=== PATIENT | female | born 1945 ===

== ENCOUNTER 2019-03-06 14:28 | Emergency (ER) | payer OTHER ==
[~2019-03-06] VITALS: Ht 157.5 cm; Wt 81.6 kg
== END 2019-03-06 19:53 | disposition home or self-care (01) ==
LOC: ER 14:28
DX: S00.83XA Contusion of other part of head, initial encounter (principal); W18.39XA Other fall on same level, initial encounter; Y93.89 Activity, other specified; Y92.091 Bathroom in other non-institutional residence as the place of occurrence of the external cause; Y99.8 Other external cause status